=== PATIENT | male | born 1940 | race Caucasian/White ===

== ENCOUNTER 2023-11-19 17:55 | Emergency (ER) | payer OTHER ==
[2023-11-19 18:40] VITALS: BP 167/86; PULSE 81; RESP 18; TEMP 98.1; BMI 31.0
[2023-11-19] MEDS ORDERED: ACETAMINOPHEN 500 MG TABLET (FP) PO ONE (19:54)
[2023-11-19] MEDS ORDERED: ACETAMINOPHEN 500 MG TABLET (FP) ONE (20:00)
== END 2023-11-19 21:14 | disposition home or self-care (01) ==
LOC: FER 17:55
DX: S16.1XXA Strain of muscle, fascia and tendon at neck level, initial encounter (principal); R51.9 Headache, unspecified; M54.2 Cervicalgia; V49.40XA Driver injured in collision with unspecified motor vehicles in traffic accident, initial encounter; Y93.I9 Activity, other involving external motion
CPT/HCPCS: 70450-TC; 72125-TC; 99284-25

== ENCOUNTER 2024-05-26 17:08 | Emergency (ER) | payer OTHER, BC ==
[2024-05-26 17:19] VITALS: BP 129/98; PULSE 76; RESP 18; TEMP 99.3; BMI 25.1
[2024-05-26] MEDS ORDERED: CEPHALEXIN MONOHYDRATE 500 MG CAPSULE (UD) ONE (18:58)
[2024-05-26] MEDS: CEPHALEXIN MONOHYDRATE 500 MG CAPSULE (UD) PO ONE (19:00)
== END 2024-05-26 20:19 | disposition home or self-care (01) ==
LOC: FER 17:08
DX: S92.422A Displaced fracture of distal phalanx of left great toe, initial encounter for closed fracture (principal); L03.032 Cellulitis of left toe; X58.XXXA Exposure to other specified factors, initial encounter
CPT/HCPCS: 73630-TC-LT; 99283-25

== ENCOUNTER 2024-07-13 15:46 | Inpatient (IN) | payer OTHER, BC ==
[2024-07-13 17:52] LABS: BASO % 0.7 % (0-2.0); EOS % 0.1 % (0-4.5); HEMATOCRIT 41.9 % (35.4-49); HEMOGLOBIN 13.9 GM/dL (11.7-16.9); LYMPH % 9.9 % (8-40); MCH 30.5 pg (25.7-33.7); MEAN CELL VOLUME 92.3 fl (80-96); MEAN PLT VOLUME 8.7 fl (7.5-11.1); MONO % 8.2 % (3.8-10.2); NEUT % 81.1 % (42.8-82.8); PLATELET COUNT 362 10^3/uL (134-434); RBC 4.54 M/mm3 (4.00-5.60); RDW 15.9 % (11.9-15.9); WHITE BLOOD COUNT 8.3 K/mm3 (4.0-10.0)
[2024-07-13 18:01] LABS: INR 1.49 (0.83-1.09); PROTHROMBIN TIME (PATIENT) 16.6 SEC (9.7-13.0)
[2024-07-13 18:02] LABS: CHLORIDE 105 mmol/L (98-107); POTASSIUM 6.2 mmol/L (3.5-5.1); SODIUM 135 mmol/L (136-145)
[2024-07-13 18:04] LABS: ACTIVATED PTT 29.8 SECONDS (25.2-36.5)
[2024-07-13 18:05] LABS: CALCIUM 9.7 mg/dL (8.5-10.1)
[2024-07-13 18:06] LABS: ALBUMIN 3.8 g/dl (3.4-5.0); ANION GAP 8 mmol/L (4-13); BLOOD UREA NITROGEN 56.6 mg/dL (7-18); CO2 21 mmol/L (21-32); GLUCOSE,RANDOM 230 mg/dL (74-106); MAGNESIUM 2.6 mg/dL (1.8-2.4)
[2024-07-13 18:08] LABS: SGPT/ALT 184 U/L (13-61)
[2024-07-13 18:09] LABS: CREATININE 2.4 mg/dL (0.55-1.3); PHOSPHOROUS 4.9 mg/dL (2.5-4.9); SGOT/AST 57 U/L (15-37)
[2024-07-13 18:10] LABS: BILIRUBIN,TOTAL 1.4 mg/dL (0.2-1); TOT PROT 6.8 g/dl (6.4-8.2)
[2024-07-13 18:12] LABS: ALK PHOS 140 U/L (45-117)
[2024-07-13] MEDS: SODIUM CHLORIDE 0.9% 1000 ML INFUS.BAG IV ONE (18:22)
[2024-07-13] MEDS ORDERED: DEXTROSE 50%-WATER 25 GM/50 ML DISP.SYRIN ONE (18:24)
[2024-07-13] MEDS ORDERED: SODIUM ZIRCONIUM CYCLOSILICATE (LOKELMA) 10 GM PACKET ONE (18:25)
[2024-07-13] MEDS ORDERED: CALCIUM GLUCONATE 10% - 1,000 MG/10 ML VIAL ONE (18:25)
[2024-07-13] MEDS ORDERED: INSULIN REGULAR HUMAN 100 UNITS/ML *VIAL ONE (18:26)
[2024-07-13 18:30] LABS: N-TERMINAL BNP 45288.8 pg/ml (5-450)
[2024-07-13] MEDS: SODIUM ZIRCONIUM CYCLOSILICATE (LOKELMA) 5 GM PACKET PO ONE (18:33)
[2024-07-13] MEDS: CALCIUM GLUCONATE 10% - 1,000 MG/10 ML VIAL IVPUSH ONE (18:33)
[2024-07-13] MEDS: DEXTROSE 50%-WATER - 25 GM/50 ML VIAL IVPUSH ONE (18:45)
[2024-07-13] MEDS: INSULIN REGULAR HUMAN 100 UNITS/ML *VIAL IVPUSH ONE (18:45)
[2024-07-13] MEDS: CEFTRIAXONE 1,000 MG in DEXTROSE 5%-WATER - 50 ML IVPB ONE (19:47)
[2024-07-13] MEDS ORDERED: CEFTRIAXONE 1 GM/50 ML BAG ONE (19:48)
[2024-07-13] MEDS: AZITHROMYCIN IVPB 500 MG in DEXTROSE 5%-WATER - 250 ML IVPB ONE (20:24)
[2024-07-13] MEDS ORDERED: AZITHROMYCIN IVPB 500 MG/250 ML BAG IVPB ONE (20:24)
[2024-07-14 02:52] VITALS: BMI 26.2
[2024-07-14] MEDS: INSULIN ASPART SLIDING SCALE (NOVOLOG) 1 VIAL SQ SCH (07:07)
[2024-07-14 07:36] LABS: BASO % 1.3 % (0-2.0); EOS % 0.3 % (0-4.5); HEMOGLOBIN 13.3 GM/dL (11.7-16.9); LYMPH % 15.3 % (8-40); MCH 31.4 pg (25.7-33.7); MCHC 33.2 g/dl (32.0-35.9); MEAN CELL VOLUME 94.6 fl (80-96); NEUT % 73.1 % (42.8-82.8); PLATELET COUNT 307 10^3/uL (134-434); RBC 4.23 M/mm3 (4.00-5.60); RDW 16.1 % (11.9-15.9); WHITE BLOOD COUNT 8.6 K/mm3 (4.0-10.0)
[2024-07-14 07:41] LABS: POTASSIUM 5.2 mmol/L (3.5-5.1)
[2024-07-14 07:45] LABS: ALBUMIN 3.5 g/dl (3.4-5.0); BLOOD UREA NITROGEN 51.4 mg/dL (7-18); CALCIUM 9.7 mg/dL (8.5-10.1)
[2024-07-14 07:47] LABS: MAGNESIUM 2.5 mg/dL (1.8-2.4)
[2024-07-14 07:48] LABS: CREATININE 2.1 mg/dL (0.55-1.3)
[2024-07-14 07:49] LABS: PHOSPHOROUS 4.7 mg/dL (2.5-4.9)
[2024-07-14 07:51] LABS: BILIRUBIN,TOTAL 1.5 mg/dL (0.2-1); TOT PROT 6.4 g/dl (6.4-8.2)
[2024-07-14] MEDS: APIXABAN 2.5 MG TABLET PO SCH (09:06)
[2024-07-14] MEDS: FUROSEMIDE 40 MG/4 ML INJECTABLE VIAL IVPUSH SCH (14:02)
[2024-07-14] MEDS: FUROSEMIDE 40 MG/4 ML INJECTABLE VIAL IVPUSH ONE (14:02)
[2024-07-14] MEDS ORDERED: CEFTRIAXONE 1 GM in DEXTROSE 5%-WATER - 50 ML IVPB SCH (16:00)
[2024-07-14] MEDS ORDERED: AZITHROMYCIN IVPB 500 MG/250 ML BAG IVPB SCH (18:00)
[2024-07-15 06:09] LABS: BASO % 1.4 % (0-2.0); EOS % 0.7 % (0-4.5); HEMATOCRIT 41.2 % (35.4-49); HEMOGLOBIN 13.6 GM/dL (11.7-16.9); LYMPH % 17.3 % (8-40); MCH 31.1 pg (25.7-33.7); MCHC 33.1 g/dl (32.0-35.9); MEAN PLT VOLUME 8.5 fl (7.5-11.1); MONO % 10.2 % (3.8-10.2); NEUT % 70.4 % (42.8-82.8); PLATELET COUNT 306 10^3/uL (134-434); RBC 4.39 M/mm3 (4.00-5.60); WHITE BLOOD COUNT 7.5 K/mm3 (4.0-10.0)
[2024-07-15 06:29] LABS: POTASSIUM 5.4 mmol/L (3.5-5.1)
[2024-07-15 06:32] LABS: ALBUMIN 3.6 g/dl (3.4-5.0); BLOOD UREA NITROGEN 54.2 mg/dL (7-18); CALCIUM 9.7 mg/dL (8.5-10.1); MAGNESIUM 2.5 mg/dL (1.8-2.4)
[2024-07-15 06:35] LABS: CREATININE 2.3 mg/dL (0.55-1.3); PHOSPHOROUS 5.2 mg/dL (2.5-4.9)
[2024-07-15 06:36] LABS: BILIRUBIN,TOTAL 1.2 mg/dL (0.2-1); TOT PROT 6.4 g/dl (6.4-8.2)
[2024-07-15 08:40] LABS: PH,URINE 5.5 (5.0-8.0); URINE APPEARANCE CLEAR; URINE BILIRUBIN NEGATIVE (NEGATIVE); URINE COLOR YELLOW; URINE GLUCOSE (UA) NEGATIVE (NEGATIVE); URINE KETONE NEGATIVE (NEGATIVE); URINE LEUK ESTERASE NEGATIVE (NEGATIVE); URINE NITRITE NEGATIVE (NEGATIVE); URINE PROTEIN NEGATIVE (NEGATIVE); URINE UROBILINOGEN 0.2 mg/dL (0.2-1.0)
[2024-07-15] MEDS: PATIENT'S OWN MEDICATION (NON-FORMULARY) (Relugolix [Orgovyx] 120 MG Tablet) PO SCH (10:26)
[2024-07-15] MEDS: SODIUM ZIRCONIUM CYCLOSILICATE (LOKELMA) 5 GM PACKET PO SCH (16:35)
[2024-07-16] MEDS: RELUGOLIX 120 MG PO SCH (09:36)
[2024-07-16 13:05] LABS: POTASSIUM 3.9 mmol/L (3.5-5.1)
[2024-07-16 13:07] LABS: BLOOD UREA NITROGEN 42.7 mg/dL (7-18)
[2024-07-16 13:10] LABS: CREATININE 1.9 mg/dL (0.55-1.3)
[2024-07-16] MEDS: ATORVASTATIN CA 40 MG TABLET (FP) PO SCH (21:58)
[2024-07-16] MEDS: CARVEDILOL 3.125 MG TABLET (FP) PO SCH (21:58)
[2024-07-17 08:04] LABS: BASO % 0.8 % (0-2.0); EOS % 1.3 % (0-4.5); HEMATOCRIT 41.3 % (35.4-49); HEMOGLOBIN 14.9 GM/dL (11.7-16.9); LYMPH % 14.5 % (8-40); MCH 34.1 pg (25.7-33.7); MCHC 36.1 g/dl (32.0-35.9); MEAN CELL VOLUME 94.4 fl (80-96); MEAN PLT VOLUME 8.5 fl (7.5-11.1); MONO % 11.7 % (3.8-10.2); NEUT % 71.7 % (42.8-82.8); PLATELET COUNT 283 10^3/uL (134-434); RBC 4.38 M/mm3 (4.00-5.60); RDW 15.8 % (11.9-15.9); WHITE BLOOD COUNT 7.1 K/mm3 (4.0-10.0)
[2024-07-17 08:20] LABS: POTASSIUM 3.7 mmol/L (3.5-5.1)
[2024-07-17 08:22] LABS: ALBUMIN 3.2 g/dl (3.4-5.0); BLOOD UREA NITROGEN 37.3 mg/dL (7-18); CALCIUM 8.5 mg/dL (8.5-10.1); MAGNESIUM 1.9 mg/dL (1.8-2.4)
[2024-07-17 08:25] LABS: CREATININE 1.7 mg/dL (0.55-1.3); PHOSPHOROUS 3.5 mg/dL (2.5-4.9)
[2024-07-17 08:27] LABS: BILIRUBIN,TOTAL 1.6 mg/dL (0.2-1)
[2024-07-17] MEDS: FUROSEMIDE 40 MG TABLET (FP) PO SCH (09:44)
[2024-07-17] MEDS: EZETIMIBE 10 MG TABLET (FP) PO SCH (09:44)
[2024-07-17] MEDS: CARVEDILOL 6.25 MG TABLET (FP) PO SCH (21:51)
[2024-07-18 07:00] LABS: HEMATOCRIT 42.4 % (35.4-49); HEMOGLOBIN 14.5 GM/dL (11.7-16.9); MCH 31.4 pg (25.7-33.7); MCHC 34.1 g/dl (32.0-35.9); MEAN PLT VOLUME 8.2 fl (7.5-11.1); PLATELET COUNT 269 10^3/uL (134-434); RBC 4.61 M/mm3 (4.00-5.60); RDW 15.8 % (11.9-15.9); WHITE BLOOD COUNT 8.8 K/mm3 (4.0-10.0)
[2024-07-18 07:18] LABS: POTASSIUM 3.6 mmol/L (3.5-5.1)
[2024-07-18 07:20] LABS: CALCIUM 8.8 mg/dL (8.5-10.1)
[2024-07-18 07:23] LABS: BLOOD UREA NITROGEN 32.1 mg/dL (7-18)
[2024-07-18 07:25] LABS: CREATININE 1.4 mg/dL (0.55-1.3)
[2024-07-19 06:35] VITALS: RESP 17
[2024-07-19 10:49] VITALS: BP 139/72; PULSE 77; TEMP 98.6
== END 2024-07-19 12:11 | DRG 291 ==
LOC: JER 15:46 → JERBED 20:03 → J4W 07-14 01:06
PROVIDERS: ADMIT Internal Medicine; ATTEND Internal Medicine
DX: I13.0 Hypertensive heart and chronic kidney disease with heart failure and stage 1 through stage 4 chronic kidney disease, or unspecified chronic kidney disease (principal); I50.23 Acute on chronic systolic (congestive) heart failure; I50.32 Chronic diastolic (congestive) heart failure; N17.9 Acute kidney failure, unspecified; E87.5 Hyperkalemia; C61 Malignant neoplasm of prostate; I48.91 Unspecified atrial fibrillation; I25.10 Atherosclerotic heart disease of native coronary artery without angina pectoris; N18.30 Chronic kidney disease, stage 3 unspecified; I11.0 Hypertensive heart disease with heart failure; E78.5 Hyperlipidemia, unspecified; E11.9 Type 2 diabetes mellitus without complications; E87.70 Fluid overload, unspecified
CPT/HCPCS: 0241U-QW; 36415; 70450-TC; 71045-TC-FY; 71250-TC; 72125-TC; 72131-TC; 72170-TC-FY; 74150-TC; 76700-TC; 80048; 80053; 80061; 81003; 82550; 82607; 82746; 82962; 83036; 83735; 83880; 84100; 84443; 84484; 85025; 85027; 85610; 85730; 87635; 93005; 93010; 93306-TC; 93970-TC; 97116-GP; 97162-GP; 99285-25

== ENCOUNTER 2024-10-27 19:39 | Emergency (ER) | payer OTHER, BC ==
[2024-10-27] MEDS ORDERED: LORATADINE 10 MG TABLET ONE (20:16)
[2024-10-27 20:20] VITALS: BP 167/83; PULSE 62; RESP 18; TEMP 97.5; BMI 23.6
[2024-10-27] MEDS: LORATADINE 10 MG TABLET PO ONE (20:20)
== END 2024-10-27 20:21 | disposition home or self-care (01) ==
LOC: FER 19:39
DX: H65.02 Acute serous otitis media, left ear (principal)
CPT/HCPCS: 99283-25